=== PATIENT | female | born 1955 | race Caucasian/White ===

== ENCOUNTER → 2023-08-03 | Outpatient (CLI) | payer MEDICARE, BC | LOC: M RAD 12:50 | PROVIDERS: ATTEND Registered Nurse | DX: Z12.2 Encounter for screening for malignant neoplasm of respiratory organs (principal); F17.210 Nicotine dependence, cigarettes, uncomplicated; G61.81 Chronic inflammatory demyelinating polyneuritis; R91.1 Solitary pulmonary nodule ==

== ENCOUNTER → 2023-08-03 | Outpatient (CLI) | payer MEDICARE, BC | LOC: M LAB 13:40 | PROVIDERS: ATTEND Psychiatry & Neurology Neurology | DX: G61.81 Chronic inflammatory demyelinating polyneuritis (principal) ==

== ENCOUNTER 2023-11-09 10:55 | Emergency (ER) | payer MEDICARE, BC ==
[~2023-11-09] VITALS: Ht 177.8 cm; Wt 88.0 kg
[2023-11-09 11:38] LABS: VENOUS BASE EXCESS 2.2 (-2.0-2.0); VENOUS HCO3 28.1 MMOL/L (23.0-27.0); VENOUS O2 SATURATION 73.8 % (60.0-80.0); VENOUS PARTIAL PRESSURE CO2 48.9 mmHg (38.0-50.0); VENOUS PARTIAL PRESSURE O2 36.8 mmHg (30.0-50.0); VENOUS PH 7.378 UNITS (7.330-7.430); VENOUS STANDARD HCO3 25.8 MMOL/L; VENOUS TOTAL CO2 29.6 MMOL/L (24.0-28.0)
[2023-11-09 12:01] LABS: BASO % 0.5 % (0.0-1.0); EOS # 0.3 10^3/uL (0.0-0.5); HEMATOCRIT 41.7 % (36.0-47.0); HEMOGLOBIN 13.8 g/dl (12.0-15.5); LYMPH # 0.5 10^3/uL (1.5-5.0); LYMPH % 8.5 % (24.0-44.0); MEAN CORPUSCULAR HEMOGLOBIN 27.1 pg (27.0-33.0); MEAN CORPUSCULAR HGB CONC 33.1 g/dl (32.0-36.5); MEAN CORPUSCULAR VOLUME 81.9 fl (80.0-96.0); MONO # 0.4 10^3/uL (0.0-0.8); MONO % 6.8 % (2.0-8.0); NEUTROPHILS # 4.6 10^3/uL (1.5-8.5); NEUTROPHILS % 78.9 % (36.0-66.0); PLATELET COUNT, AUTOMATED 211 10^3/uL (150-450); RED BLOOD COUNT 5.09 10^6/uL (4.00-5.40); WHITE BLOOD COUNT 5.9 10^3/uL (4.0-10.0)
[2023-11-09 12:14] LABS: THYROID STIMULATING HORMONE 1.149 uIU/ML (0.55-4.78)
[2023-11-09 12:15] LABS: ALBUMIN 2.8 G/DL (3.2-5.2); ALKALINE PHOSPHATASE 395 U/L (46-116); ALT/SGPT 590 U/L (7.0-40); AST/SGOT 262 U/L (<34); BILIRUBIN,DIRECT 3.3 MG/DL (<0.4); BILIRUBIN,TOTAL 4.4 MG/DL (0.3-1.2); BLOOD UREA NITROGEN 12 MG/DL (9-23); CALCIUM LEVEL 9.5 MG/DL (8.3-10.6); CARBON DIOXIDE LEVEL 28 MMOL/L (20-31); CHLORIDE LEVEL 105 MMOL/L (98-107); CREATININE FOR GFR 0.47 MG/DL (0.55-1.30); GLOMERULAR FILTRATION RATE > 60.0 (>45); GLUCOSE, FASTING 141 MG/DL (74-106); POTASSIUM SERUM 3.8 MMOL/L (3.5-5.1); SODIUM LEVEL 139 MMOL/L (136-145); TOTAL PROTEIN 6.4 G/DL (5.7-8.2)
[2023-11-09] MEDS: NS 1,000 ML IV SCH (12:15)
[2023-11-09 12:23] LABS: OSMOLALITY SERUM 293 MOSM/KG (280-301)
[2023-11-09 13:12] LABS: ERYTHROCYTE SEDIMENTATION RATE 60 mm/hr (0-30)
[2023-11-09 13:18] LABS: CPK CREATINE PHOSPHOKINASE 24 U/L (34-145)
[2023-11-09] MEDS: GABAPENTIN 300 MG CAP PO ONE (15:42)
[2023-11-09 18:22] LABS: ALBUMIN 2.8 G/DL (3.2-5.2); BILIRUBIN,DIRECT 2.8 MG/DL (<0.4); BILIRUBIN,TOTAL 3.8 MG/DL (0.3-1.2); TOTAL PROTEIN 6.3 G/DL (5.7-8.2)
[2023-11-09] MEDS: LevoFLOXacin IV 750 MG in IV 1 EA IV ONE (19:20)
[2023-11-09] MEDS: MORPHINE 2 MG/ML 1ML VIAL IV PRN (19:30)
[2023-11-09] MEDS: KETOROLAC 30 MG/ML 1ML VIAL IV ONE (19:40)
[2023-11-09 19:45] VITALS: BP 153/76; TEMP 97.8; O2SAT 96
== END 2023-11-09 20:05 | disposition short-term general hospital (02) ==
LOC: M ED 10:55 → EDBD 10:55 → M ED 20:05
DX: J44.1 Chronic obstructive pulmonary disease with (acute) exacerbation (principal); E11.9 Type 2 diabetes mellitus without complications; I25.10 Atherosclerotic heart disease of native coronary artery without angina pectoris; Z79.01 Long term (current) use of anticoagulants; Z95.5 Presence of coronary angioplasty implant and graft; Z88.0 Allergy status to penicillin; Z88.5 Allergy status to narcotic agent; Z88.8 Allergy status to other drugs, medicaments and biological substances; K80.20 Calculus of gallbladder without cholecystitis without obstruction; R16.1 Splenomegaly, not elsewhere classified; K80.50 Calculus of bile duct without cholangitis or cholecystitis without obstruction
CPT/HCPCS: 70450; 71045; 73564; 74181; 76705; 80048; 80076; 81001; 82140; 82550; 82803; 83605; 83930; 84443; 85025; 85652; 86140; 87040; 87486; 87581; 87633; 87798; 93005; 93041; 94760; 96374; 96375; 99285; J1885; J1956

== ENCOUNTER → 2023-12-22 | Outpatient (CLI) | payer MEDICARE, BC | LOC: M RAD 14:52 | PROVIDERS: ATTEND Psychiatry & Neurology Neurology | DX: G82.50 Quadriplegia, unspecified (principal); E11.69 Type 2 diabetes mellitus with other specified complication ==

== ENCOUNTER → 2023-12-22 | Outpatient (CLI) | payer MEDICARE, BC | LOC: M LAB 14:56 | PROVIDERS: ATTEND Nurse Practitioner Family | DX: E11.69 Type 2 diabetes mellitus with other specified complication (principal) ==

== ENCOUNTER → 2024-02-20 | Outpatient (CLI) | payer MEDICARE, BC, MEDICAID ==
[2024-02-20 12:27] LABS: HEPATITIS B SURFACE ANTIBODY POSITIVE (POSITIVE)
[2024-02-20 12:39] LABS: HEPATITIS B SURFACE ANTIGEN NEGATIVE (NEGATIVE)
[2024-02-22 11:27] LABS: QuantiFERON-TB Gold Plus NEGATIVE (NEGATIVE)
== END ==
LOC: M LAB 11:04
PROVIDERS: ATTEND Psychiatry & Neurology Neurology
DX: T50.905A Adverse effect of unspecified drugs, medicaments and biological substances, initial encounter (principal)

== ENCOUNTER → 2024-02-20 | Outpatient (CLI) | payer MEDICARE, BC ==
[2024-02-20 12:00] LABS: BASO # 0.1 10^3/uL (0.0-0.2); EOS # 0.2 10^3/uL (0.0-0.5); EOS % 2.9 % (0.0-3.0); HEMATOCRIT 49.3 % (36.0-47.0); HEMOGLOBIN 16.1 g/dl (12.0-15.5); LYMPH % 26.5 % (24.0-44.0); MEAN CORPUSCULAR HEMOGLOBIN 27.1 pg (27.0-33.0); MEAN CORPUSCULAR HGB CONC 32.7 g/dl (32.0-36.5); MONO # 0.4 10^3/uL (0.0-0.8); MONO % 5.4 % (2.0-8.0); NEUTROPHILS # 4.7 10^3/uL (1.5-8.5); NEUTROPHILS % 63.9 % (36.0-66.0); PLATELET COUNT, AUTOMATED 240 10^3/uL (150-450); RED BLOOD COUNT 5.94 10^6/uL (4.00-5.40); WHITE BLOOD COUNT 7.4 10^3/uL (4.0-10.0)
[2024-02-20 12:26] LABS: THYROID STIMULATING HORMONE 1.797 uIU/ML (0.55-4.78)
[2024-02-20 12:27] LABS: ALBUMIN 3.8 G/DL (3.2-5.2); ALKALINE PHOSPHATASE 57 U/L (35-104); ALT/SGPT 24 U/L (7.0-40); AST/SGOT 18 U/L (<34); BILIRUBIN,TOTAL 0.7 MG/DL (0.3-1.2); BLOOD UREA NITROGEN 20 MG/DL (9-23); CALCIUM LEVEL 10.4 MG/DL (8.3-10.6); CARBON DIOXIDE LEVEL 29 MMOL/L (20-31); CHLORIDE LEVEL 108 MMOL/L (98-107); CHOLESTEROL LEVEL 191 MG/DL (<200); CHOLESTEROL RISK RATIO 4.03 (<5); CREATININE FOR GFR 0.46 MG/DL (0.55-1.30); FREE T4 1.06 NG/DL (0.89-1.76); GLOMERULAR FILTRATION RATE > 60.0 (>45); GLUCOSE, FASTING 157 MG/DL (74-106); HDL CHOLESTEROL 47.3 MG/DL (>40); LDL CHOLESTEROL 112.5 MG/DL (<100); NON-HDL-C 143.7 MG/DL; POTASSIUM SERUM 4.4 MMOL/L (3.5-5.1); SODIUM LEVEL 143 MMOL/L (136-145); TOTAL PROTEIN 7.7 G/DL (5.7-8.2); TRIGLYCERIDES LEVEL 156 MG/DL (<150)
== END ==
LOC: M LAB 11:00
PROVIDERS: ATTEND Registered Nurse
DX: I10 Essential (primary) hypertension (principal); T50.905A Adverse effect of unspecified drugs, medicaments and biological substances, initial encounter; Z11.59 Encounter for screening for other viral diseases

== ENCOUNTER → 2024-03-08 | Outpatient (CLI) | payer MEDICARE, BC, MEDICAID | LOC: M WHC 11:59 | PROVIDERS: ATTEND Registered Nurse | DX: Z12.31 Encounter for screening mammogram for malignant neoplasm of breast (principal); M81.0 Age-related osteoporosis without current pathological fracture ==

== ENCOUNTER → 2024-03-30 | Outpatient (CLI) | payer MEDICARE, BC, MEDICAID ==
[~2024-03-30] MED LIST: ACET1TAB55 PO; ASPI81TA26 PO; ATOR40TA75 PO; B-1100TA2 PO; CYAN500T14 PO; GABA-1172 PO; IVIG; JARD1TAB PO; MECL-86 PO; MELA3TAB49 PO; METH-1165 PO; MIRA3350 PO; NITR0.4S14 SL; ONDA-83 PO; SERT50TA29 PO; TRAM50TA2 PO; TRAZ1TAB12 PO; VITA100093 PO; XARE10TA PO
== END ==
LOC: M WHC 10:32
PROVIDERS: ATTEND Registered Nurse
DX: Z12.31 Encounter for screening mammogram for malignant neoplasm of breast (principal); Z13.820 Encounter for screening for osteoporosis; R92.313 Mammographic fatty tissue density, bilateral breasts

== ENCOUNTER 2024-04-02 06:04 | Day surgery (SDC) | payer MEDICARE, BC, MEDICAID ==
[~2024-04-02] VITALS: Ht 177.8 cm; Wt 86.2 kg
[2024-04-02] MEDS: CYCLOPENTOLATE 1% OPHTH SOLN 2ML BTL OS SCH (06:34)
[2024-04-02] MEDS: FLURBIPROFEN 0.03% OPHTH SOLN 2.5 ML OS SCH (06:34)
[2024-04-02] MEDS: TETRACAINE 0.5% OPHTH SOLN 4ML OS SCH (06:34)
[2024-04-02] MEDS: PHENYLEPHRINE 2.5% OPHTH SOL 2ML OS SCH (06:34)
[2024-04-02] MEDS ORDERED: LR 1,000 ML IV SCH (07:00)
[2024-04-02] MEDS ORDERED: MIDAZOLAM INJ 2MG/2ML VIAL As Ordered ONE (07:04)
[2024-04-02] MEDS ORDERED: fentaNYL 100 MCG/2 ML INJECTION As Ordered ONE (07:04)
[2024-04-02] MEDS: CEFUROXIME 1MG/0.1ML INTRACAMERAL INJ As Ordered ONE (07:35)
[2024-04-02] MEDS: LIDOCAINE 1% SDV 5ML VIAL As Ordered ONE (07:35)
[2024-04-02 07:49] VITALS: BP 113/64; TEMP 97.4; O2SAT 96
== END 2024-04-02 08:40 | disposition home or self-care (01) ==
LOC: M SDC 06:04
PROVIDERS: ATTEND Ophthalmology
DX: E11.36 Type 2 diabetes mellitus with diabetic cataract (principal); H25.12 Age-related nuclear cataract, left eye; I25.10 Atherosclerotic heart disease of native coronary artery without angina pectoris; I25.2 Old myocardial infarction; G61.81 Chronic inflammatory demyelinating polyneuritis; E78.00 Pure hypercholesterolemia, unspecified; K21.9 Gastro-esophageal reflux disease without esophagitis; Z79.82 Long term (current) use of aspirin; Z79.899 Other long term (current) drug therapy; Z79.84 Long term (current) use of oral hypoglycemic drugs; Z79.01 Long term (current) use of anticoagulants; Z88.0 Allergy status to penicillin; Z88.5 Allergy status to narcotic agent; Z88.8 Allergy status to other drugs, medicaments and biological substances; Z90.89 Acquired absence of other organs; Z90.710 Acquired absence of both cervix and uterus
CPT/HCPCS: 66984; J0697; J2250; J3010; V2632

== ENCOUNTER → 2024-05-19 | Outpatient (CLI) | payer MEDICARE, BC, MEDICAID | LOC: M RAD 08:28 | PROVIDERS: ATTEND Psychiatry & Neurology Neurology | DX: H53.139 Sudden visual loss, unspecified eye (principal); I63.9 Cerebral infarction, unspecified ==

== ENCOUNTER 2024-06-25 06:16 | Day surgery (SDC) | payer MEDICARE, BC, MEDICAID ==
[~2024-06-25] VITALS: Ht 177.8 cm; Wt 91.0 kg
[~2024-06-25 06:16] MED LIST changes: +ALEN70TA82 PO; +DOCU100C16 PO
[2024-06-25] MEDS ORDERED: LR 1,000 ML IV SCH (07:00)
[2024-06-25] MEDS: CYCLOPENTOLATE 1% OPHTH SOLN 2ML BTL OD SCH (07:07)
[2024-06-25] MEDS: TETRACAINE 0.5% OPHTH SOLN 4ML OD SCH (07:07)
[2024-06-25] MEDS: PHENYLEPHRINE 2.5% OPHTH SOL 2ML OD SCH (07:07)
[2024-06-25] MEDS: FLURBIPROFEN 0.03% OPHTH SOLN 2.5 ML OD SCH (07:07)
[2024-06-25] MEDS ORDERED: fentaNYL 100 MCG/2 ML INJECTION As Ordered ONE (07:19)
[2024-06-25] MEDS ORDERED: MIDAZOLAM INJ 2MG/2ML VIAL As Ordered ONE (07:20)
[2024-06-25] MEDS: LIDOCAINE 1% SDV 5ML VIAL As Ordered ONE (08:02)
[2024-06-25] MEDS: CEFUROXIME 1MG/0.1ML INTRACAMERAL INJ As Ordered ONE (08:02)
[2024-06-25 08:13] VITALS: BP 117/59; TEMP 96.7; O2SAT 96
== END 2024-06-25 08:42 | disposition home or self-care (01) ==
LOC: M SDC 06:16
PROVIDERS: ATTEND Ophthalmology
DX: H25.11 Age-related nuclear cataract, right eye (principal); E11.9 Type 2 diabetes mellitus without complications; I25.10 Atherosclerotic heart disease of native coronary artery without angina pectoris; I25.2 Old myocardial infarction; Z95.5 Presence of coronary angioplasty implant and graft; Z88.0 Allergy status to penicillin; Z88.5 Allergy status to narcotic agent; Z88.8 Allergy status to other drugs, medicaments and biological substances; Z79.899 Other long term (current) drug therapy; Z87.891 Personal history of nicotine dependence
CPT/HCPCS: 66984; J0697; J2250; J3010; V2632

== ENCOUNTER 2024-10-01 09:53 | Outpatient (RCR) | payer MEDICARE, BC, MEDICAID | END 2024-10-04 | LOC: M PT 09:53 | PROVIDERS: ATTEND Orthopaedic Surgery | DX: M17.0 Bilateral primary osteoarthritis of knee (principal) ==

== ENCOUNTER 2024-10-30 10:38 | Outpatient (RCR) | payer MEDICARE, BC, MEDICAID | END 2024-11-04 | LOC: M PT 10:38 | PROVIDERS: ATTEND Orthopaedic Surgery | DX: M17.0 Bilateral primary osteoarthritis of knee (principal) ==

== ENCOUNTER 2024-11-22 09:40 | Outpatient (RCR) | payer MEDICARE, BC, MEDICAID | END 2024-12-04 | LOC: M PT 09:40 | PROVIDERS: ATTEND Orthopaedic Surgery | DX: M17.0 Bilateral primary osteoarthritis of knee (principal) ==

== ENCOUNTER 2024-12-06 10:35 | Outpatient (RCR) | payer MEDICARE, BC, MEDICAID | END 2025-01-04 | LOC: M PT 10:35 | PROVIDERS: ATTEND Orthopaedic Surgery | DX: M17.0 Bilateral primary osteoarthritis of knee (principal) ==